=== PATIENT | female | born 2000 | race Caucasian/White ===

== ENCOUNTER → 2021-07-14 10:29 | Outpatient (BNVA) | payer OTHER, SELFPAY | PROVIDERS: Family Provider Student in an Organized Health Care Education/Training Program; PCP Registered Nurse; Visit Provider Registered Nurse | DX: Z20.822 Contact with and (suspected) exposure to COVID-19 (principal); Z11.52 Encounter for screening for COVID-19; U07.1 COVID-19 | CPT/HCPCS: 87635 ==

== ENCOUNTER 2021-11-21 21:48 | Emergency (ER) | payer OTHER, SELFPAY ==
[2021-11-21 21:58] VITALS: BP 138/60; PULSE 76; RESP 20; TEMP 36.6; O2SAT 100; BMI 31.8
--- NOTE | 2021-11-21 22:27 | CTR_ITS ---
PROCEDURE INFORMATION: Exam: CT Maxillofacial Without Contrast Exam date and time: 11/21/2021 10:27 PM Age: 21 years old Clinical indication: Injury or trauma; Blunt trauma (contusions or hematomas); Patient HX: HX of seizures - single seizure this pm w fall hitting nose; Additional info: Seizure-fell and hit head, epistaxis TECHNIQUE: Imaging protocol: Computed tomography images of the face without contrast. Radiation optimization: All CT scans at this facility use at least one of these dose optimization techniques: automated exposure control; mA and/or kV adjustment per patient size (includes targeted exams where dose is matched to clinical indication); or iterative reconstruction. COMPARISON: CT head wo con* [id number] 2021-11-21 22:43 RADIATION DOSE METRICS: Total DLP (mGy-cm): 714.01 FINDINGS: Orbital cavities: Orbits are normal. Globes are unremarkable. Bones/joints: No acute fracture or dislocation. Paranasal sinuses: Normal. No air-fluid levels. Soft tissues: Unremarkable. CT/CT facial bones wo con* [id number] IMPRESSION: No acute osseous abnormality.
--- NOTE | 2021-11-21 22:27 | CTR_ITS ---
PROCEDURE INFORMATION: Exam: CT Cervical Spine Without Contrast Exam date and time: 11/21/2021 10:27 PM Age: 21 years old Clinical indication: Injury or trauma; Blunt trauma; Patient HX: HX of seizures - single seizure this pm w fall; Additional info: Seizure-fell and hit head TECHNIQUE: Imaging protocol: Computed tomography images of the cervical spine without contrast. Radiation optimization: All CT scans at this facility use at least one of these dose optimization techniques: automated exposure control; mA and/or kV adjustment per patient size (includes targeted exams where dose is matched to clinical indication); or iterative reconstruction. COMPARISON: 1. CT facial bones wo con* [id number] 2021-11-21 22:[address] head wo con* [id number] 2021-11-21 22:43 RADIATION DOSE METRICS: Total DLP (mGy-cm): 669.9 FINDINGS: Bones/joints: Straightening of the normal cervical lordotic curvature. Normal vertebral body heights and alignments. No fractures. Discs/Spinal canal/Neural foramina: No significant disc protrusion. No severe spinal canal stenosis. No significant neural foraminal narrowing. Lungs: Lung apices are normal. Soft tissues: Unremarkable. CT/CT cervical spin wo con* [id number] IMPRESSION: No acute fracture/subluxation.
--- NOTE | 2021-11-21 22:27 | CTR_ITS ---
PROCEDURE INFORMATION: Exam: CT Head Without Contrast Exam date and time: 11/21/2021 10:27 PM Age: 21 years old Clinical indication: Injury or trauma; Blunt trauma (contusions or hematomas); Consciousness not specified; Patient HX: HX of seizures - single seizure this pm w fall; Additional info: Seizure-fell and hit head TECHNIQUE: Imaging protocol: Computed tomography of the head without contrast. Radiation optimization: All CT scans at this facility use at least one of these dose optimization techniques: automated exposure control; mA and/or kV adjustment per patient size (includes targeted exams where dose is matched to clinical indication); or iterative reconstruction. COMPARISON: No relevant prior studies available. RADIATION DOSE METRICS: Total DLP (mGy-cm): 770.26 FINDINGS: Brain: Normal. No hemorrhage. Unremarkable white matter. No mass effect. Cerebral ventricles: No ventriculomegaly. Paranasal sinuses: Visualized sinuses are unremarkable. No fluid levels. Mastoid air cells: Visualized mastoid air cells are well aerated. Bones/joints: Unremarkable. No acute fracture. Soft tissues: Unremarkable. CT/CT head wo con* [id number] IMPRESSION: No acute intracranial abnormality.
--- NOTE | 2021-11-21 22:33 | ED_ITS ---
Documented by User: JENNIFER Magana 11/22/21 03:47 HPI - Seizure General: Chief Complaint: Seizure Stated Complaint: Seizures Time Seen by Provider: 11/21/21 22:14 History of Present Illness: HPI Narrative: Patient is a 21-year-old female comes to the ED after seizures. Patient has a past medical history of seizures and is currently on Keppra 500 mg twice daily. She says she has not had a seizure in over 3 months. Today she had a headache and no other symptoms. around 5 PM tonight she was at her house and had a seizure. It was unwitnessed. Patient says she was standing when seizure occurred. She woke up face down on the ground and had a bloody nose. She had bladder incontinence during episode. She had another seizure approximately 30 to 40 minutes after the first 1. She still has a headache and it is located at the top of her head she describes it as a sharp pain and she rates it a 9 out of 10. She feels nauseous as well and says light and loud noises worsen headache. She was able to get nosebleed resolved at home. She endorses having pain on left maxillary side of her face and pain over bridge of nose. Patient sees a neurologist in [place]. Associated symptoms: Deny chest pain, chills or fever(s) Review of Systems Const: Reports: fatigue (post-ictal tiredness); Denies: fever(s) or chills Eyes: Reports: photophobia; Denies: change in vision or eye discomfort ENMT: Reports: epistaxis and sinus pain (pain over bridge of nose and left maxillary region); Denies: throat pain, odynophagia, nasal discharge or nasal congestion Card: Denies: chest pain, palpitations, edema, swelling of feet/ankles, dyspnea on exertion or orthopnea Resp: Denies: dyspnea, productive cough or non-productive cough GI: Denies: abdominal pain, nausea, vomiting, diarrhea, constipation or hematochezia : Denies: flank pain, dysuria or hematuria Musc: Denies: neck pain, back pain or extremity swelling Skin/Breast: Denies: rash or new lesions Neuro: Reports: headache(s) and seizure-like activity; Denies: numbness in extremities or weakness in extremities PFS ED PFSH: Medical History No pertinent family history Seizures Physical Exam Const: COMMON NORMALS: patient oriented x3 and alert GENERAL APPEARANCE: cooperative and comfortable HENMT: COMMON NORMALS: normocephalic HEAD & SCALP: normocephalic NOSE: Abnormal external nose present nasal tenderness (tenderness over bridge of nose) and Epistaxis present bilaterally dried blood present; no active bleeding MOUTH: Normal oral and palatal mucosa present THROAT: posterior oropharynx normal and uvula midline Eye: COMMON NORMALS: Equal, round and reactive pupils present, EOMs intact bilaterally and conjunctivae normal CONJUNCTIVA: Yes conjunctivae normal PUPIL: Yes Equal, round and reactive pupils present Neck/C-Spine: COMMON NORMALS: supple GENERAL: Yes normal visual inspection Resp: COMMON NORMALS: normal respiratory effort, No retractions, No use of accessory muscles and clear to auscultation bilaterally AUSCULTATION: clear to auscultation bilaterally Cardio: COMMON NORMALS: regular rate, regular rhythm, S1 normal heart sound present, S2 normal heart sound present, No gallops present (Cardio), No clicks present (Cardio), No murmurs present (Cardio) and Peripheral pulses 2+ throughout RATE: regular rate RHYTHM: regular rhythm HEART SOUNDS: S1 normal heart sound present and S2 normal heart sound present PERIPHERAL PULSES: Peripheral pulses 2+ throughout GI: COMMON NORMALS: Normal to inspection, nondistended, normoactive bowel sounds present, Soft to palpation, non-tender and no masses PALPATION: Yes Soft to palpation : COMMON NORMALS: Yes no CVA tenderness BLADDER/KIDNEY EXAM: Yes no CVA tenderness Back/Pelvis: COMMON NORMALS: no CVA tenderness Extremity: COMMON NORMALS: normal to inspection Neuro: COMMON NORMALS: patient oriented x3, CN's II-XII intact bilaterally, moves all extremities, no focal motor deficits and no sensory deficits noted SENSORIUM/ORIENTATION: Yes alert SENSORY EXAM: Yes extremities (intact) MOTOR EXAM: 5/5 motor strength present throughout Skin: GENERAL SKIN EXAM: dry skin Course Reevaluation(s): Reevaluation #1: After patient received IV Toradol and Reglan her migraine improved. She rates her headache now 5 out of 10 and says it is manageable. Time: 00:20 Vital Signs: Vital signs: Vital Signs Temperature 97.9 F 11/21/21 21:58 Pulse Rate 73 11/22/21 00:41 Respiratory Rate 16 11/22/21 00:41 Blood Pressure 105/61 11/22/21 00:41 Pulse Oximetry 97 11/22/21 00:41 MDM - Seizure MDM Narrative Medical decision making narrative: Patient is a 21-year-old female comes to the ED after seizures. Patient has a past medical history of seizures and is currently on Keppra 500 mg twice daily. She says she has not had a seizure in over 3 months. Today she had a headache and no other symptoms. around 5 PM tonight she was at her house and had a seizure while standing and woke up on the ground. She had another seizure approximately 30 to 45 minutes later and she said she had a nosebleed that she was able to control at home. Patient still having a migraine. Vitals are stable. Labs are unremarkable. CT of face, head and cervical spine showed no acute fractures or findings. Patient was given IV fluids, Reglan and Toradol while here in the ED and her migraine improved. She was also given a dose of Ativan and 500 mg of IV Keppra here in the ED. Patient sees neurologist in [place]. Patient diagnosed with a seizure migraine and was discharged home. I told patient to contact her neurologist tomorrow morning to discuss seizures yesterday and possible change in seizure medication management. I also told her to follow-up with her PCP in the next 5 to 7 days for reevaluation. Return to ED precautions given. Patient understood and agreed with plan. Lab Data Attestation: I reviewed the patient's lab results. Result diagrams: 11/21/21 22:20 11/21/21 22:20 Labs: Radiology Impressions Cervical Spine CT 11/21/21 22:27 IMPRESSION: No acute fracture/subluxation. Face CT 11/21/21 22:27 IMPRESSION: No acute osseous abnormality. Head CT 11/21/21 22:27 IMPRESSION: No acute intracranial abnormality. Laboratory Results WBC 7.3 10^3/uL (4.0-10.0) 11/21/21 22:20 RBC 5.28 10^6/uL (4.1-5.3) 11/21/21 22:20 Hgb 15.5 g/dL (11.5-15.3) H 11/21/21 22:20 Hct 45.6 % (37.0-47.0) 11/21/21 22:20 MCV 86.4 fl (81-99) 11/21/21:20 MCH 29.4 pg (28.0-34.0) 11/21/21: MCHC 34.0 g/dL (30.0-36.0) 11/21/21:20 RDW 12.3 % (12.1-15.1) 11/21/21: Plt Count 241 10^3/cmm (130-400) 11/21/21 22:20 MPV 10.2 fL (7.4-10.4) 11/21/21 22: Neut % (Auto) 60.1 % 11/21/21 22: Lymph % (Auto) 31.6 % 11/21/21 22: [place] % (Auto) 6.6 % 11/21/21 22:20 Eos % (Auto) 1.0 % 11/21/21: Baso % (Auto) 0.4 % 11/21/21: Neut # (Auto) 4.41 10^3/uL (1.8-7.7) 11/21/21 22:20 Lymph # (Auto) 2.3 10^3/uL (0.8-4.8) 11/21/21:20 [place] # (Auto) 0.5 10^3/uL (0.2-0.9) 11/21/21 22:20 Eos # (Auto) 0.1 10^3/uL (0.0-0.8) 11/21/21:20 Baso # (Auto) 0.0 10^3/uL (0.0-0.1) 11/21/21:20 Nucleated RBC % (auto) 0 % 11/21/21: Nucleated RBCs # 0.0 /100WBC 11/21/21 22:20 Sodium 141 mmol/L (136-145) 11/21/21 22:20 Potassium 4.0 mmol/L (3.5-5.1) 11/21/21 22:20 Chloride 104 mmol/L (98-107) 11/21/21 22:20 Carbon Dioxide 25 mmol/L (22-29) 03/13/22 22:20 Anion Gap 16.0 (5-19) 11/21/21 22:20 BUN 17 mg/dL (6-20) 11/21/21 22:20 Creatinine 0.8 mg/dL (0.5-0.9) 11/21/21 22:20 GFR Calculation 90.5 mL/min (90-130) 11/21/21 22:20 Glucose 94 mg/dL (65-115) 11/21/21 22:20 Calculated Osmolality 293 mOsm/kg (285-295) 11/21/21 22:20 Calcium 9.5 mg/dL (8.5-10.5) 11/21/21 22:20 Magnesium 2.0 mg/dL (1.7-2.3) 11/21/21 22:20 Total Bilirubin 0.5 mg/dL (0.15-1.2) 11/21/21 22:20 AST 17 U/L (0-32) 11/21/21 22:20 ALT 15 U/L (0-33) 11/21/21 22:20 Alkaline Phosphatase 53 IU/L (35-105) 11/21/21 22:20 Creatine Kinase 80 U/L (26-192) 11/21/21 22:20 Total Protein 7.5 g/dL (6.6-8.7) 11/21/21 22:20 Albumin 4.5 g/dL (3.5-5.2) 11/21/21 22:20 Globulin 3.0 g/dL (1.3-4.6) 11/21/21 22:20 TSH 0.90 uIU/mL (0.27-4.20) 11/21/21 22:20 HCG, Qual Negative (Negative) 11/21/21 22:20 Discharge Plan Discharge Patient Disposition: Home Clinical Impression: Seizure Migraine Qualifiers: Migraine type: without aura Status migrainosus presence: without status migrainosus Intractability: not intractable Qualified Code(s): G43.009 - Migraine without aura, not intractable, without status migrainosus Condition: Stable Prescriptions: No Action levetiracetam [Keppra] 500 mg tablet See Rx Instructions PO BID 0RF Rx Instructions: DOSE UNSURE.PO twice a day; Discharge Orders: Discharge ED (Routine); Ordered 11/22/21 Ordered By: Donovan Abernathy Referrals: Farrah Trevino FNP [Primary Care Provider] - Amrik Perez MD [Referring] - Discharge Diet: Regular Discharge Activity: Increase activity as tolerated Patient Instructions: Seizures Activity Restrictions/Additional Instructions: Follow-up with medical provider as directed. Call your neurologist tomorrow to let them know about your 2 seizures tonight and find out if they will want you to make any medication adjustments. You can let the neurologist know that you were given an extra dose of 500 mg IV Keppra here in the ED last night. Also set up a follow-up appoint with your primary care doctor within the next week for reevaluation. Continue taking home medications as previously prescribed. Return to the ER or your medical provider if condition worsens. Please read and understand discharge instructions. Thank you for choosing [facility] for your healthcare needs today. Please realize this is an emergency room and that we are providing you with a medical screening exam and this may not be complete and all inclusive of all the testing and or work up that you may need to determine your ailment or severity of your illness. It is very important that you follow up as instructed or that you return to the Emergency Department should you have concerns or if your condition changes or worsens in any way. 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 Patient has a past medical history of seizures and is currently on Keppra 500 mg twice daily. She says she has not had a seizure in over 3 months. Today she had a headache and no other symptoms. around 5 PM tonight she was at her house and had a seizure while standing and woke up on the ground. She had another seizure approximately 30 to 45 minutes later and she said she had a nosebleed that she was able to control at home. Patient still having a migraine. Vitals are stable. Labs are unremarkable. CT of face, head and cervical spine showed no acute fractures or findings. Patient was given IV fluids, Reglan and Toradol while here in the ED and her migraine improved. She was also given a dose of Ativan and 500 mg of IV Keppra here in the ED. Patient sees neurologist in [place]. Patient diagnosed with a seizure migraine and was discharged home. I told patient to contact her neurologist tomorrow morning to discuss seizures yesterday and possible change in seizure medication management. I also told her to follow-up with her PCP in the next 5 to 7 days for reevaluation. Return to ED precautions given. Patient understood and agreed with plan. This patient was originally seen by Mr. Josemanule PA-C.? I agree with his history, evaluation, and treatment. Lab Data Result diagrams: 11/21/21 22:20 11/21/21 22:20 Labs: Radiology Impressions Cervical Spine CT 11/21/21 22:27 IMPRESSION: No acute fracture/subluxation. Face CT 11/21/21 22:27 IMPRESSION: No acute osseous abnormality. Head CT 11/21/21 22:27 IMPRESSION: No acute intracranial abnormality. Laboratory Results WBC 7.3 10^3/uL (4.0-10.0) 11/21/21 22:20 RBC 5.28 10^6/uL (4.1-5.3) 11/21/21 22:20 Hgb 15.5 g/dL (11.5-15.3) H 11/21/21 22:20 Hct 45.6 % (37.0-47.0) 11/21/21 22:20 MCV 86.4 fl (81-99) 11/21/21 22:20 MCH 29.4 pg (28.0-34.0) 11/21/21 22:20 MCHC 34.0 g/dL (30.0-36.0) 11/21/21 22:20 RDW 12.3 % (12.1-15.1) 11/21/21 22:20 Plt Count 241 10^3/cmm (130-400) 11/21/21 22:20 MPV 10.2 fL (7.4-10.4) 11/21/21 22:20 Neut % (Auto) 60.1 % 11/21/21 22:20 Lymph % (Auto) 31.6 % 11/21/21 22:20 [place] % (Auto) 6.6 % 11/21/21 22:20 Eos % (Auto) 1.0 % 11/21/21 22:20 Baso % (Auto) 0.4 % 11/21/21:20 Neut # (Auto) 4.41 10^3/uL (1.8-7.7) 11/21/21 22:20 Lymph # (Auto) 2.3 10^3/uL (0.8-4.8) 11/21/21 22:20 [place] # (Auto) 0.5 10^3/uL (0.2-0.9) 11/21/21 22:20 Eos # (Auto) 0.1 10^3/uL (0.0-0.8) 11/21/21:20 Baso # (Auto) 0.0 10^3/uL (0.0-0.1) 11/21/21 22:20 Nucleated RBC % (auto) 0 % 11/21/21:20 Nucleated RBCs # 0.0 /100WBC 11/21/21 22:20 Sodium 141 mmol/L (136-145) 11/21/21 22:20 Potassium 4.0 mmol/L (3.5-5.1) 11/21/21 22:20 Chloride 104 mmol/L (98-107) 11/21/21 22:20 Carbon Dioxide 25 mmol/L (22-29) 11/21/21 22:20 Anion Gap 16.0 (5-19) 11/21/21 22:20 BUN 17 mg/dL (6-20) 11/21/21 22:20 Creatinine 0.8 mg/dL (0.5-0.9) 11/21/21 22:20 GFR Calculation 90.5 mL/min (90-130) 11/21/21 22:20 Glucose 94 mg/dL (65-115) 11/21/21 22:20 Calculated Osmolality 293 mOsm/kg (285-295) 11/21/21 22:20 Calcium 9.5 mg/dL (8.5-10.5) 11/21/21 22:20 Magnesium 2.0 mg/dL (1.7-2.3) 11/21/21 22:20 Total Bilirubin 0.5 mg/dL (0.15-1.2) 11/21/21 22:20 AST 17 U/L (0-32) 11/21/21 22:20 ALT 15 U/L (0-33) 11/21/21 22:20 Alkaline Phosphatase 53 IU/L (35-105) 11/21/21 22:20 Creatine Kinase 80 U/L (26-192) 11/21/21 22:20 Total Protein 7.5 g/dL (6.6-8.7) 11/21/21 22:20 Albumin 4.5 g/dL (3.5-5.2) 11/21/21 22:20 Globulin 3.0 g/dL (1.3-4.6) 11/21/21 22:20 TSH 0.90 uIU/mL (0.27-4.20) 11/21/21 22:20 HCG, Qual Negative (Negative) 11/21/21 22:20 Discharge Plan Discharge Patient Disposition: Home Clinical Impression: Seizure Migraine Qualifiers: Migraine type: without aura Status migrainosus presence: without status migrainosus Intractability: not intractable Qualified Code(s): G43.009 - Migraine without aura, not intractable, without status migrainosus Condition: Stable Prescriptions: No Action levetiracetam [Keppra] 500 mg tablet See Rx Instructions PO BID 0RF Rx Instructions: DOSE UNSURE.PO twice a day; Discharge Orders: Discharge ED (Routine); Ordered 11/22/21 Ordered By: Donovan Abernathy Referrals: Farrah Trevino FNP [Primary Care Provider] - Amrik Perez MD [Referring] - Discharge Diet: Regular Discharge Activity: Increase activity as tolerated Patient Instructions: Seizures Activity Restrictions/Additional Instructions: Follow-up with medical provider as directed. Call your neurologist tomorrow to let them know about your 2 seizures tonight and find out if they will want you to make any medication adjustments. You can let the neurologist know that you were given an extra dose of 500 mg IV Keppra here in the ED last night. Also set up a follow-up appoint with your primary care doctor within the next week for reevaluation. Continue taking home medications as previously prescribed. Return to the ER or your medical provider if condition worsens. Please read and understand discharge instructions. Thank you for choosing [facility] for your healthcare needs today. Please realize this is an emergency room and that we are providing you with a medical screening exam and this may not be complete and all inclusive of all the testing and or work up that you may need to determine your ailment or severity of your illness. It is very important that you follow up as instructed or that you return to the Emergency Department should you have concerns or if your condition changes or worsens in any way. 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
[2021-11-21 22:37] LABS: Basophils % 0.4 %; Eosinophils # 0.1 10^3/uL (0.0-0.8); Hematocrit 45.6 % (37.0-47.0); Hemoglobin 15.5 g/dL (11.5-15.3); Lymphocytes # 2.3 10^3/uL (0.8-4.8); Lymphocytes % 31.6 %; Mean Corpuscular Hemoglobin 29.4 pg (28.0-34.0); Mean Corpuscular Volume 86.4 fl (81-99); Mean Platelet Volume 10.2 fL (7.4-10.4); Monocytes # 0.5 10^3/uL (0.2-0.9); Monocytes % 6.6 %; Neutrophils # 4.41 10^3/uL (1.8-7.7); Neutrophils % 60.1 %; Nucleated Red Blood Cells % 0 %; Platelet Count 241 10^3/cmm (130-400); Red Blood Count 5.28 10^6/uL (4.1-5.3); Red Cell Distribution Width 12.3 % (12.1-15.1); White Blood Count 7.3 10^3/uL (4.0-10.0)
[2021-11-21] MEDS: ondansetron 2 mg/ML SDV 2 mL 4 MG IVP (22:37)
[2021-11-21] MEDS: LORazepam 2 mg/mL INJ 1 mL 1 MG IVP (22:37)
[2021-11-21 22:54] LABS: HCG, Serum Qual Negative (Negative)
[2021-11-21 22:58] LABS: Alanine Aminotransferase 15 U/L (0-33); Albumin Level 4.5 g/dL (3.5-5.2); Alkaline Phosphatase 53 IU/L (35-105); Aspartate Amino Transferase 17 U/L (0-32); Blood Urea Nitrogen 17 mg/dL (6-20); Calcium 9.5 mg/dL (8.5-10.5); Carbon Dioxide 25 mmol/L (22-29); Chloride 104 mmol/L (98-107); Creatine Phosphokinase 80 U/L (26-192); Glomerular Filtration Rate 90.5 mL/min (90-130); Glucose 94 mg/dL (65-115); Osmolality Calculated 293 mOsm/kg (285-295); Sodium 141 mmol/L (136-145); Total Bilirubin 0.5 mg/dL (0.15-1.2); Total Protein 7.5 g/dL (6.6-8.7)
[2021-11-21] MEDS: ketorolac 30 mg/mL INJ IVP (23:31)
[2021-11-21] MEDS: metoclopramide 5 mg/mL SDV 2 mL 10 MG IVP (23:31)
[2021-11-21] MEDS: sodium chloride 0.9% 500 ML 999 ML IV (23:31)
[2021-11-22 00:41] VITALS: BP 105/61; PULSE 73; RESP 16; O2SAT 97
== END 2021-11-22 00:42 | disposition home or self-care (01) ==
PROVIDERS: Emergency Provider Physician Assistant; PCP Registered Nurse
DX: R56.9 Unspecified convulsions (principal); G43.009 Migraine without aura, not intractable, without status migrainosus
CPT/HCPCS: 70450; 70486; 72125; 80053; 82550; 83735; 84443; 84703; 85025; 96365; 96375; 99284; J1885; J1953; J2060; J2405; J2765; J7040

== ENCOUNTER 2021-11-23 08:09 | Emergency (ER) | payer OTHER, SELFPAY ==
[2021-11-23] VITALS (8 sets, daily range): BP systolic 79–126; BP diastolic 38–75; PULSE 56–72; RESP 17–18; TEMP 36.4–36.7; O2SAT 96–100; BMI 31.8
--- NOTE | 2021-11-23 08:18 | XR_ITS ---
WS: [id number] XR chest 1V portable [id number] REASON FOR EXAM: seizures FINDINGS: The heart and mediastinum are within normal limits. Calcified granulomatous disease bilaterally. No active pulmonary parenchymal or pleural abnormality. Bony thorax intact. XR/XR chest 1V portable [id number] IMPRESSION: No acute chest abnormality.
--- NOTE | 2021-11-23 08:19 | W.ED.SEIZURE ---
Documented by User: JENNIFER Shin 11/23/21 10:43 HPI - Seizure General: Chief Complaint: Seizure Stated Complaint: SEIZURE Time Seen by Provider: 11/23/21 08:10 Source: patient Mode of arrival: ambulatory Limitations: no limitations History of Present Illness: HPI Narrative: Patient is a nice 21-year-old female with a history of epilepsy here for concerns of a seizure that she had while at work just prior to arrival. She states she was seated in the break room eating when she felt like she was going to have a seizure and reports she blacked out. She reports when seizures have been witnessed previously she has been told she has minor clonic movements. Patient tells me that she takes Keppra as well as Topamax for her seizures. She states she was here in the ED approximately 48 hours ago after she had a seizure. She states prior to these episodes that she had not had a seizure in over 3 months. He follows with a neurologist at [facility] in [place]-Dr. Reyes. Patient states she has not had any changes to her current medication regimens. Denies drug or alcohol use. Patient states over the last few days she has felt achy has had a headache. She does have a history of migraine headaches and has been told that these could contribute to her seizures. Patient takes Ubrevly and Imitrex PRN for migraines. Patient has not been running fevers. She has no complaints of neck pain or stiffness. Patient underwent CT imaging 48 hours ago on her last ED visit that was normal. No head trauma during this episode today. MD complaint: seizure Onset (ago): hour(s) Description of Episode: loss of consciousness, bladder incontinence and post-event confusion Witnessed: Yes - by Bystander Trauma: No Seizure History: Yes Place: Work Possible Precipitating Event: none Associated symptoms: Reports other (headache ); Deny chest pain, chills, confusion, fever(s), malaise or syncope Treatments prior to arrival: none Review of Systems Const: Reports: body aches; Denies: fever(s), chills, fatigue or malaise Eyes: Denies: change in vision, blurry vision, photophobia, floaters or seeing flashes ENMT: Denies: throat pain, odynophagia, nasal discharge, nasal congestion, post nasal drip or sinus pain Card: Denies: chest pain, palpitations, irregular heart rhythm, edema, lightheadedness, syncope or pre-syncope Resp: Denies: dyspnea or chest congestion GI: Denies: abdominal pain, vomiting or diarrhea : Denies: flank pain, dysuria, hematuria, vaginal odor, vaginal discharge or pelvic pain Musc: Denies: neck pain, back pain, extremity pain or joint pain Skin/Breast: Denies: rash Neuro: Reports: headache(s) and seizure-like activity; Denies: numbness in extremities, weakness in extremities, sensory changes, lack of coordination, difficulty walking, frequent falls, dizziness, vertigo, confusion, behavioral changes, Slurred speech present or difficulty communicating thoughts PFSH ED PFSH: Medical History No pertinent family history Seizures Physical Exam Const: COMMON NORMALS: no acute distress, average body habitus, patient oriented x3, no limitations, healthy appearing, alert and well nourished GENERAL APPEARANCE: cooperative ORIENTATION/CONSCIOUSNESS: Yes awake, Yes oriented to person, Yes oriented to place and Yes oriented to time HENMT: COMMON NORMALS: normocephalic and atraumatic HEAD & SCALP: normal to inspection, normocephalic and atraumatic FACE & SINUS: normal facial exam Eye: COMMON NORMALS: Equal, round and reactive pupils present and EOMs intact bilaterally GENERAL EYE: appearance normal, both eyes and all related structures PUPIL: Yes Equal, round and reactive pupils present Neck/C-Spine: COMMON NORMALS: full ROM and no meningeal signs CERVICAL SPINE: Yes cervical ROM normal, No pain with cervical ROM and No Cervical spine tenderness Resp: COMMON NORMALS: normal respiratory effort and clear to auscultation bilaterally AUSCULTATION: clear to auscultation bilaterally Cardio: COMMON NORMALS: regular rate and regular rhythm RATE: regular rate RHYTHM: regular rhythm GI: COMMON NORMALS: Normal to inspection, nondistended, normoactive bowel sounds present, Soft to palpation, non-tender, No hepatosplenomegaly present and no masses PALPATION: Yes Soft to palpation and Yes No hepatosplenomegaly present : COMMON NORMALS: Yes no CVA tenderness BLADDER/KIDNEY EXAM: Yes no CVA tenderness Back/Pelvis: COMMON NORMALS: no CVA tenderness, thoracic and lumbar spine normal to inspection, no thoracic nor lumbar tenderness and thoraco-lumbar ROM normal Extremity: COMMON NORMALS: normal to inspection, capillary refill normal, no joint enlargement, no clubbing, cyanosis or edema, no calf tenderness and no pedal edema GENERAL: Yes normal exam except as noted Neuro: SARAH BETH COMA SCALE: document GCS findings [place] coma scale eye opening: Spontaneous Sarah Beth coma scale verbal response: Orientated [place] coma scale motor response: Obey commands Sarah Beth coma scale total score: 15 COMMON NORMALS: patient oriented x3, CN's II-XII intact bilaterally, moves all extremities, no focal motor deficits and no sensory deficits noted SENSORIUM/ORIENTATION: Yes alert, Yes oriented to person, Yes oriented to place and Yes oriented to time MENINGEAL SIGNS: Yes no meningeal signs SPEECH: speech normal Skin: COMMON NORMALS: no rashes or lesions noted GENERAL SKIN EXAM: no rashes or lesions noted TRAUMA: no lacerations or abrasions Course Consultations: Consultation #1: Dr. Mabel Reyes-[facility]-recommends increasing Topamax to 100mg BID Vital Signs: Vital signs: Vital Signs Temperature 98.1 F 11/23/21 08:48 Pulse Rate 66 11/23/21 10:49 Respiratory Rate 17 11/23/21 10:49 Blood Pressure 119/75 11/23/21 10:49 Pulse Oximetry 96 11/23/21 10:49 MDM - Seizure MDM Narrative Medical decision making narrative: Patient is a 21-year-old female who presents to ED today for complaints of a seizure that occurred just prior to arrival while she was seated in the break room eating. Patient tells me she has a history of epilepsy. She follows with [facility]-Dr. Reyes. Patient was in our ED 48 hours ago for complaints of a seizure. Prior to these episodes she had not had a seizure in over 3 months. She takes Keppra and Topamax daily for seizures. She also has a history of migraine headaches in which she takes Ubrelvy and Imitrex as needed. I spoke to patient's neurologist today who stated patient is being treated for epilepsy but her diagnosis is not entire clear as her last MRI and EEG were normal. She had requests for these tests to be repeated but according to patient has not been due to her insurance. Dr. Reyes said that she would be creating another note to submit to insurance to get these tests expedited. She recommended increasing patient's Topamax from 50 mg twice daily to 100 mg twice daily. She would call this medication into patient's pharmacy (we will go ahead and write her prescription today just in case there are any issues). Patient had work-up 48 hours ago in our ED consisting of blood work and CT imaging which was essentially negative. She has not had any head trauma today therefore CT imaging not repeated. She had a negative test last visit. Basic labs today are normal. UA is contaminated does look suspicious for UTI. She does complain of some urinary burning and has been taking Azo. Recommended repeat UA however patient states she does not want to drink anything and cannot give repeat sample and refuses cath. We will go ahead and place her on Macrobid based on symptoms. She did complain of a headache today which improved with IV medications. At this time patient is stable for DC with strict return to ED precautions. She has someone that can stay with her for safety over the next 48 hours. Lab Data Result diagrams: 11/23/21 08:25 11/23/21 08:25 Labs: Radiology Impressions Chest X-Ray 11/23/21 08:18 IMPRESSION: No acute chest abnormality. Laboratory Results WBC 6.3 10^3/uL (4.0-10.0) 11/23/21 08:25 RBC 5.05 10^6/uL (4.1-5.3) 11/23/21 08:25 Hgb 14.9 g/dL (11.5-15.3) 11/23/21 08:25 Hct 44.3 % (37.0-47.0) 11/23/21 08:25 MCV 87.7 fl (81-99) 11/23/21 08:25 MCH 29.5 pg (28.0-34.0) 11/23/21 08:25 MCHC 33.6 g/dL (30.0-36.0) 11/23/21 08:25 RDW 12.1 % (12.1-15.1) 11/23/21 08:25 Plt Count 208 10^3/cmm (130-400) 11/23/21 08:25 MPV 10.6 fL (7.4-10.4) H 11/23/21 08:25 Neut % (Auto) 68.1 % 11/23/21 08:25 Lymph % (Auto) 26.5 % 11/23/21 08:25 [place] % (Auto) 4.1 % 11/23/21 08:25 Eos % (Auto) 0.5 % 11/23/21 08:25 Baso % (Auto) 0.3 % 11/23/21 08:25 Neut # (Auto) 4.31 10^3/uL (1.8-7.7) 11/23/21 08:25 Lymph # (Auto) 1.7 10^3/uL (0.8-4.8) 11/23/21 08:25 [place] # (Auto) 0.3 10^3/uL (0.2-0.9) 11/23/21 08:25 Eos # (Auto) 0.0 10^3/uL (0.0-0.8) 11/23/21 08:25 Baso # (Auto) 0.0 10^3/uL (0.0-0.1) 11/23/21 08:25 Nucleated RBC % (auto) 0 % 11/23/21 08:25 Nucleated RBCs # 0.0 /100WBC 11/23/21 08:25 Sodium 140 mmol/L (136-145) 11/23/21 08:25 Potassium 4.3 mmol/L (3.5-5.1) 11/23/21 08:25 Chloride 105 mmol/L (98-107) 11/23/21 08:25 Carbon Dioxide 24 mmol/L (22-29) 11/23/21 08:25 Anion Gap 15.3 (5-19) 11/23/21 08:25 BUN 16 mg/dL (6-20) 11/23/21 08:25 Creatinine 0.9 mg/dL (0.5-0.9) 11/23/21 08:25 GFR Calculation 79.0 mL/min (90-130) L 11/23/21 08:25 Glucose 92 mg/dL (65-115) 11/23/21 08:25 Calculated Osmolality 291 mOsm/kg (285-295) 11/23/21 08:25 Lactic Acid 1.1 mmol/L (0.5-2.2) 11/23/21 08:25 Calcium 9.0 mg/dL (8.5-10.5) 11/23/21 08:25 Total Bilirubin 0.9 mg/dL (0.15-1.2) 11/23/21 08:25 AST 14 U/L (0-32) 11/23/21 08:25 ALT 13 U/L (0-33) 11/23/21 08:25 Alkaline Phosphatase 53 IU/L (35-105) 11/23/21 08:25 Total Protein 6.9 g/dL (6.6-8.7) 11/23/21 08:25 Albumin 4.7 g/dL (3.5-5.2) 11/23/21 08:25 Globulin 2.2 g/dL (1.3-4.6) 11/23/21 08:25 Urine Color Yellow (Yellow) 11/23/21 09:30 Urine Appearance Cloudy (CLEAR) 11/23/21 09:30 Urine pH 5 (5-7) 11/23/21 09:30 Ur Specific [place] 1.020 (1.005-1.030) 11/23/21 09:30 Urine Protein Neg (Negative) 11/23/21 09:30 Urine Glucose (UA) Norm (Normal) 11/23/21 09:30 Urine Ketones Negative (Negative) 11/23/21 09:30 Urine Blood 2+ (Negative) H 11/23/21 09:30 Urine Nitrate Negative (Negative) 11/23/21 09:30 Urine Bilirubin Neg (Negative) 11/23/21 09:30 Urine Urobilinogen Norm mg/dL (Negative) 11/23/21 09:30 Ur Leukocyte Esterase Trace (Negative) H 11/23/21 09:30 Urine RBC 5-10 /hpf (0-2) H 11/23/21 09:30 Urine WBC 25-40 /hpf (0-5) H 11/23/21 09:30 Ur Squamous Epith Cells 25-40 /hpf (0-5) H 11/23/21 09:30 Amorphous Sediment Not Reportable 11/23/21 09:30 Urine Bacteria 1+ /hpf (NONE) H 11/23/21 09:30 Discharge Plan Discharge Patient Disposition: Home Clinical Impression: Seizure Migraine Qualifiers: Migraine type: unspecified Status migrainosus presence: without status migrainosus Intractability: not intractable Qualified Code(s): G43.909 - Migraine, unspecified, not intractable, without status migrainosus UTI (urinary tract infection) Qualifiers: Urinary tract infection type: acute cystitis Hematuria presence: with hematuria Qualified Code(s): N30.01 - Acute cystitis with hematuria Condition: Stable Prescriptions: New Topamax 100 mg tablet 100 mg PO BID Qty: 60 0RF Macrobid 100 mg capsule 100 mg PO BID 7 Days Qty: 14 0RF Rx Instructions: must administer with a meal/food Discontinued topiramate [Topamax] 50 mg Tablet 50 mg PO BID 0RF No Action Mirena 20 mcg/24 hours (7 yrs) 52 mg Intrauterine Device See Rx Instructions .ROUTE .COMPLEX 0RF Rx Instructions: intrauterinely as directed acetaminophen [Tylenol Ex Str Rapid Release] 500 mg Tablet 1,000 mg PO Q6H PRN (Reason: Pain) 0RF sumatriptan succinate [Imitrex] 100 mg Tablet 100 mg PO Q2H PRN (Reason: Migraine Headache) 0RF Rx Instructions: do not exceed 2 doses per 24 hrs melatonin 3 mg Tablet 3 mg PO BEDTIME PRN (Reason: Sleep) 0RF amitriptyline 25 mg Tablet 25 mg PO BEDTIME 0RF docusate sodium [Colace] 100 mg Capsule 100 mg PO BID PRN (Reason: Constipation) 0RF levetiracetam [Keppra] 750 mg Tablet 750 mg PO BID 0RF Ubrelvy 50 mg Tablet 50 mg PO DAILY PRN (Reason: Migraine Headache) 0RF Discharge Orders: Discharge ED (Routine); Ordered 11/23/21 Ordered By: Kelsey Reid Referrals: Farrah Trevino, [employer] [Nurse Practitioner] - Activity Restrictions/Additional Instructions: As we discussed I have spoken to your neurologist who would like to increase her Topamax to 100 mg twice daily. She has indicated that she will call in a prescription to your pharmacy for this medication. I have written you a prescription here in case you have any issues filling this medication. I am putting you on antibiotics based on your complaint of burning with urination possibility of UTI. Please follow-up with neurology at your scheduled appointment. Dr. Reyes is currently working on trying to expedite a repeat MRI and EEG. You need to return to the emergency department for any further episodes of seizures, severe abdominal pain, flank pain, fevers greater than 100.4, repetitive episodes of vomiting, generally feeling unwell, or any other concerns you may have. Hope you begin to feel better soon. Coding Level of Care Code ED People Greeter for Chg Fwd Exam Comprehensive Documented by User: Kilo Gonzalez DO 11/23/21 13:17 HPI - Seizure General: Chief Complaint: Seizure Stated Complaint: SEIZURE Time Seen by Provider: 11/23/21 08:10 PFSH ED PFSH: Medical History No pertinent family history Seizures Physical Exam Neuro: SARAH BETH COMA SCALE: document GCS findings Sarah Beth coma scale total score: 15 Course Vital Signs: Vital signs: Vital Signs Temperature 98.1 F 11/23/21 08:48 Pulse Rate 66 11/23/21 10:49 Respiratory Rate 17 11/23/21 10:49 Blood Pressure 119/75 11/23/21 10:49 Pulse Oximetry 96 11/23/21 10:49 MDM - Seizure MDM Narrative Medical decision making narrative: Patient is a 21-year-old female who presents to ED today for complaints of a seizure that occurred just prior to arrival while she was seated in the break room eating. Patient tells me she has a history of epilepsy. She follows with [facility] neurology-Dr. Reyes. Patient was in our ED 48 hours ago for complaints of a seizure. Prior to these episodes she had not had a seizure in over 3 months. She takes Keppra and Topamax daily for seizures. She also has a history of migraine headaches in which she takes Ubrelvy and Imitrex as needed. I spoke to patient's neurologist today who stated patient is being treated for epilepsy but her diagnosis is not entire clear as her last MRI and EEG were normal. She had requests for these tests to be repeated but according to patient has not been due to her insurance. Dr. Reyes said that she would be creating another note to submit to insurance to get these tests expedited. She recommended increasing patient's Topamax from 50 mg twice daily to 100 mg twice daily. She would call this medication into patient's pharmacy (we will go ahead and write her prescription today just in case there are any issues). Patient had work-up 48 hours ago in our ED consisting of blood work and CT imaging which was essentially negative. She has not had any head trauma today therefore CT imaging not repeated. She had a negative test last visit. Basic labs today are normal. UA is contaminated does look suspicious for UTI. She does complain of some urinary burning and has been taking Azo. Recommended repeat UA however patient states she does not want to drink anything and cannot give repeat sample and refuses cath. We will go ahead and place her on Macrobid based on symptoms. She did complain of a headache today which improved with IV medications. At this time patient is stable for DC with strict return to ED precautions. She has someone that can stay with her for safety over the next 48 hours. Chart reviewed and patient discussed with midlevel. Agree with assessment and plan. Lab Data Result diagrams: 11/23/21 08:25 11/23/21 08:25 Labs: Radiology Impressions Chest X-Ray 11/23/21 08:18
[2021-11-23] MEDS: LORazepam 2 mg/mL INJ 1 mL 1 MG IVP (08:30)
[2021-11-23] MEDS: ondansetron 2 mg/ML SDV 2 mL 4 MG IVP (08:30)
[2021-11-23] MEDS: acetaminophen 1,000 MG/100 ML PIGGYBACK 400 MG IV (08:30)
[2021-11-23 08:46] LABS: Basophils % 0.3 %; Eosinophils % 0.5 %; Hematocrit 44.3 % (37.0-47.0); Hemoglobin 14.9 g/dL (11.5-15.3); Lymphocytes # 1.7 10^3/uL (0.8-4.8); Lymphocytes % 26.5 %; Mean Corpuscular HGB Conc 33.6 g/dL (30.0-36.0); Mean Corpuscular Hemoglobin 29.5 pg (28.0-34.0); Mean Corpuscular Volume 87.7 fl (81-99); Mean Platelet Volume 10.6 fL (7.4-10.4); Monocytes # 0.3 10^3/uL (0.2-0.9); Monocytes % 4.1 %; Neutrophils # 4.31 10^3/uL (1.8-7.7); Neutrophils % 68.1 %; Nucleated Red Blood Cells % 0 %; Platelet Count 208 10^3/cmm (130-400); Red Blood Count 5.05 10^6/uL (4.1-5.3); Red Cell Distribution Width 12.1 % (12.1-15.1); White Blood Count 6.3 10^3/uL (4.0-10.0)
--- NOTE | 2021-11-23 09:06 | PC.NURSE ---
States her HR is usually low, in the 50s, after seizures. She had been incontinent of urine prior to arrival & after her seizure. Currently resting in bed, padded rails, call light w/in reach. Drinking water.
[2021-11-23 09:09] LABS: Lactic Sepsis W/Reflex 1.1 mmol/L (0.5-2.2)
[2021-11-23 09:10] LABS: Alanine Aminotransferase 13 U/L (0-33); Albumin Level 4.7 g/dL (3.5-5.2); Alkaline Phosphatase 53 IU/L (35-105); Aspartate Amino Transferase 14 U/L (0-32); Blood Urea Nitrogen 16 mg/dL (6-20); Carbon Dioxide 24 mmol/L (22-29); Chloride 105 mmol/L (98-107); Globulin 2.2 g/dL (1.3-4.6); Glucose 92 mg/dL (65-115); Osmolality Calculated 291 mOsm/kg (285-295); Sodium 140 mmol/L (136-145); Total Bilirubin 0.9 mg/dL (0.15-1.2); Total Protein 6.9 g/dL (6.6-8.7)
[2021-11-23 09:14] LABS: Anion Gap 15.3 (5-19); Potassium 4.3 mmol/L (3.5-5.1)
[2021-11-23] MEDS: ketorolac 60 mg/2 mL INJ 30 MG IVP (09:37)
[2021-11-23] MEDS: dexamethasone 10 mg/mL INJ 6 MG IV (09:39)
[2021-11-23] MEDS: diphenhydrAMINE 50 mg/mL SDV 1mL 25 MG IVP (09:40)
--- NOTE | 2021-11-23 10:04 | PC.PHAR ---
pt states she takes care of her own medications-pt states she takes the medications entered-[facility] states they havent filled for the pt recently- in [facility] office states the medications entered are the meds they have prescribed for the pt-
[2021-11-23 10:06] LABS: Add Urine Microscopic? YES; Bilirubin Urine Neg (Negative); Blood Urine 2+ (Negative); Glucose Urine UA Norm (Normal); Ketones Urine Negative (Negative); Leukocyte Esterase Urine Trace (Negative); Nitrate Urine Negative (Negative); Protein Urine Neg (Negative); Urine Appearance Cloudy (CLEAR); Urine Color Yellow (Yellow); Urobilinogen Urine Norm (Negative); pH Urine 5 (5-7)
[2021-11-23 10:07] LABS: Bacteria Urine 1+ /hpf; Squamous Epithelial Cell Urine 25-40 /hpf (0-5); WBC Urine 25-40 /hpf (0-5)
== END 2021-11-23 12:21 | disposition home or self-care (01) ==
PROVIDERS: Emergency Provider Physician Assistant
DX: G40.909 Epilepsy, unspecified, not intractable, without status epilepticus (principal); G43.909 Migraine, unspecified, not intractable, without status migrainosus; N30.01 Acute cystitis with hematuria
CPT/HCPCS: 71045; 80053; 81001; 83605; 85025; 96374; 96375; 99284; J1100; J1200; J1885; J2060; J2405

== ENCOUNTER 2022-04-16 08:02 | Outpatient (CLI) | payer OTHER, SELFPAY ==
[2022-04-16 08:10] LABS: SARS Covid-2 Antigen Positive (Negative)
== END 2022-04-16 08:03 | disposition home or self-care (01) ==
PROVIDERS: Visit Provider Physician Assistant
DX: R06.02 Shortness of breath (principal)
CPT/HCPCS: 87426

== ENCOUNTER 2022-06-09 08:54 | Emergency (ER) | payer OTHER, SELFPAY ==
[2022-06-09] VITALS (11 sets, daily range): BP systolic 122–150; BP diastolic 68–88; PULSE 65–101; RESP 15–21; O2SAT 97–100; BMI 31.8
--- NOTE | 2022-06-09 09:18 | W.ED.SEIZURE ---
HPI - Seizure General: Chief Complaint: Seizure Stated Complaint: seizure Time Seen by Provider: 06/09/22 09:06 Source: patient Mode of arrival: ambulatory History of Present Illness: HPI Narrative: 21-year-old female history of seizure disorder had 2 seizures this morning's been a few months and she had breakthrough seizures. She is on valproic acid and Keppra. She missed a dose yesterday morning had a generalized tonic-clonic seizure x2. The time she arrives here postictal phase is already resolved. She is awake and alert. She is somewhat emotional. Seizure History: Yes Associated symptoms: Deny chest pain, chills, fever(s) or malaise Review of Systems Const: Denies: fever(s), chills, body aches, change in appetite, fatigue or malaise ENMT: Denies: throat pain, ear or mastoid pain, nasal discharge or nasal congestion Card: Denies: chest pain, edema, dyspnea on exertion or orthopnea Resp: Denies: dyspnea, productive cough or non-productive cough GI: Denies: abdominal pain, nausea, vomiting, hematemesis, coffee ground emesis, diarrhea, constipation, bloating, hematochezia or melena : Denies: flank pain, difficulty voiding, dysuria, urinary frequency or urinary urgency Skin/Breast: Denies: rash or pruritus PFSH ED PFSH: Medical History No pertinent family history Seizure disorder Seizures Social History Smoking and tobacco status: never smoked Alcohol intake: never Physical Exam Const: GENERAL APPEARANCE: cooperative and comfortable ORIENTATION/CONSCIOUSNESS: Yes awake HENMT: COMMON NORMALS: normocephalic, atraumatic, hearing grossly normal bilaterally, external ears normal, EAC's normal, TM's normal bilaterally, Normal nasal mucous membranes and turbinates present, moist oral mucous membranes and oropharynx normal HEAD & SCALP: normocephalic and atraumatic NOSE: Normal nasal mucous membranes and turbinates present EXTERNAL EAR: Yes external ears normal EXTERNAL AUDITORY CANAL: EAC's normal TYMPANIC MEMBRANE: TM's normal bilaterally Eye: COMMON NORMALS: Equal, round and reactive pupils present, EOMs intact bilaterally, conjunctivae normal and no scleral icterus CONJUNCTIVA: Yes conjunctivae normal PUPIL: Yes Equal, round and reactive pupils present Neck/C-Spine: COMMON NORMALS: full ROM, no lymphadenopathy and supple Lymph: LYMPHATIC: no lymphadenopathy noted and no lymphedema noted Resp: COMMON NORMALS: normal respiratory effort, No retractions, No use of accessory muscles and clear to auscultation bilaterally AUSCULTATION: clear to auscultation bilaterally Cardio: COMMON NORMALS: regular rate, regular rhythm and No murmurs present (Cardio) RATE: regular rate RHYTHM: regular rhythm GI: COMMON NORMALS: Soft to palpation and No hepatosplenomegaly present AUSCULTATION: Yes normoactive bowel sounds PALPATION: Yes Soft to palpation, No Tenderness to palpation present (GI), No Guarding due to palpation present (GI) and Yes No hepatosplenomegaly present Extremity: COMMON NORMALS: normal to inspection, capillary refill normal, no clubbing, cyanosis or edema, no calf tenderness and no pedal edema Skin: COMMON NORMALS: no rashes or lesions noted GENERAL SKIN EXAM: no rashes or lesions noted Course Vital Signs: Vital signs: Vital Signs Pulse Rate 65 06/09/22 11:15 Respiratory Rate 18 06/09/22 11:15 Blood Pressure 122/76 06/09/22 11:30 Pulse Oximetry 97 06/09/22 11:15 Oxygen Delivery Me thod 06/09/22 09:07 MDM - Seizure MDM Narrative Medical decision making narrative: Discharge home will refer to neurology. Resume regular medications including Keppra and topiramate. Lab Data Labs: Laboratory Results POC Glucose 85 mg/dL (70-110) 06/09/22 09:44 Valproic Acid 2.8 ug/mL (50-100) L 06/09/22 09:24 Levetiracetam 35.3 mcg/mL (6.0-46.0) 06/09/22 09:19 Discharge Plan Discharge Patient Disposition: Home Clinical Impression: Seizure disorder Condition: Stable Prescriptions: No Action Mirena 20 mcg/24 hours (7 yrs) 52 mg Intrauterine Device See Rx Instructions .ROUTE .COMPLEX Rx Instructions: intrauterinely as directed acetaminophen [Tylenol Ex Str Rapid Release] 500 mg Tablet 1,000 mg PO Q6H PRN (Reason: Pain) sumatriptan succinate [Imitrex] 100 mg Tablet 100 mg PO Q2H PRN (Reason: Migraine Headache) Rx Instructions: do not exceed 2 doses per 24 hrs levetiracetam [Keppra] 750 mg Tablet 750 mg PO BID Ubrelvy 50 mg Tablet 50 mg PO DAILY PRN (Reason: Migraine Headache) topiramate 50 mg tablet 50 mg PO BID Discharge Orders: Discharge ED (Routine); Ordered 06/09/22 Ordered By: Kilo Gonzalez Discharge Diet: Usual diet Discharge Activity: Limit activity as instructed Patient Instructions: Opioid Safety, Pain Management Stand Alone Forms: Work/School Release Coding Level of Care Code ED Pharmacology Teacher for José Miguel Noriega
--- NOTE | 2022-06-09 09:19 | PC.NURSE ---
Addendum entered by Kelsey Marshall RN 06/09/22 10:14: seizure pads in place Original Note: reports hx of seizures that she takes medications for. reports yesterday morning she missed a dose of her medications due to being out but that she got it filled yesterday. denies any recent illness, chance of , or change in sleep patterns. reports today she had two seizures. currently reports nausea. requesting lights dimmed. light dimmed and warm blankets given for comfort. lung sounds clear bilat. speech clear. speaking in complete sentences without difficulty.
[2022-06-09 09:46] LABS: Glucose Point of Care 85 mg/dL (70-110)
[2022-06-09 09:48] LABS: Valproic Acid Level 2.8 ug/mL (50-100)
[2022-06-09] MEDS: topiramate 100 mg Tablet 200 MG PO (10:03)
--- NOTE | 2022-06-09 10:47 | PC.NURSE ---
pt ambulatory to and from restroom with slight limp. pt c/o right hip pain. physician notified.
[2022-06-10 15:03] LABS: Levetiracetam Immunoassy 35.3 mcg/mL (6.0-46.0)
--- NOTE | 2022-06-20 10:35 | PC.SOCIAL ---
Addendum entered by Araceli Hancock 08/23/22 13:30: Patient had a follow up appointment scheduled with neurology - patient did not attend appointment. Addendum entered by Araceli Hancock 06/29/22 13:42: Patient has a follow up appointment scheduled for Tuesday, August 09, 2022 at 10:[address] Jose at neurology. Clinic will call patient with appointment information. Original Note: Neurology F/u Consult received on 06/18 for neurology f/u for seizures. Attempted to reach patient to see if she has already established with neurologist, or would like to be set up with [facility] neurology. Unable to reach her. Message sent to [facility] neurology scheduling. Clinic will contact patient with appointment date and time.
== END 2022-06-09 12:21 | disposition home or self-care (01) ==
PROVIDERS: Emergency Provider Family Medicine
DX: G40.909 Epilepsy, unspecified, not intractable, without status epilepticus (principal)
CPT/HCPCS: 36416; 80164; 80177; 82962; 96365; 99284; J1953

== ENCOUNTER → 2022-07-06 10:40 | Outpatient (BNVA) | payer OTHER, SELFPAY | PROVIDERS: Visit Provider Nurse Practitioner Women's Health | DX: Z32.00 Encounter for pregnancy test, result unknown (principal); N92.6 Irregular menstruation, unspecified; G40.909 Epilepsy, unspecified, not intractable, without status epilepticus | CPT/HCPCS: 81025 ==

== ENCOUNTER → 2022-09-07 10:00 | Outpatient (BNVA) | payer BC, MEDICAID, SELFPAY | PROVIDERS: Visit Provider Nurse Practitioner Women's Health | DX: O09.91 Supervision of high risk pregnancy, unspecified, first trimester (principal); G40.909 Epilepsy, unspecified, not intractable, without status epilepticus; N92.6 Irregular menstruation, unspecified; Z3A.00 Weeks of gestation of pregnancy not specified | CPT/HCPCS: 80307; 81000; 82950; 85025; 86592; 86762; 86803; 86850; 86900; 87086; 87340; 87491; 87591; 87661; 87806; 88175 ==

== ENCOUNTER → 2022-10-07 10:20 | Outpatient (BNVA) | payer BC, MEDICAID, SELFPAY | PROVIDERS: Visit Provider Obstetrics & Gynecology | DX: O09.90 Supervision of high risk pregnancy, unspecified, unspecified trimester (principal); R82.90 Unspecified abnormal findings in urine; Z3A.00 Weeks of gestation of pregnancy not specified | CPT/HCPCS: 81000; 87086 ==

== ENCOUNTER 2022-10-31 14:06 | Outpatient (CLI) | payer BC, MEDICAID, SELFPAY ==
[2022-10-31] VITALS (9 sets, daily range): BP systolic 99–115; BP diastolic 52–68; PULSE 71–79; RESP 17; BMI 36.3
[2022-10-31] MEDS: acetaminophen 500 mg Tablet 1000 MG PO (15:46)
[2022-10-31 15:55] LABS: Bacteria Urine TRACE /hpf; Bilirubin Urine Neg (Negative); Blood Urine Neg (Negative); Glucose Urine UA Norm (Normal); Ketones Urine Negative (Negative); Leukocyte Esterase Urine Negative (Negative); Mucus Urine TRACE /hpf; Nitrate Urine Negative (Negative); Protein Urine Neg (Negative); Specific Gravity, Urine 1.015 (1.005-1.030); Urine Appearance Clear (CLEAR); Urine Color Yellow (Yellow); Urobilinogen Urine Norm (Negative); WBC Urine 0-4 /hpf (0-5); pH Urine 6.5 (5-7)
[2022-10-31 15:56] LABS: Add Urine Culture? No
[2022-10-31 16:04] LABS: Actim Prom Negative
== END 2022-10-31 16:30 | disposition home or self-care (01) ==
LOC: OPOB 14:07 → OBGYN 14:09
PROVIDERS: Absent Provider Obstetrics & Gynecology; Visit Provider Obstetrics & Gynecology
DX: O26.899 Other specified pregnancy related conditions, unspecified trimester (principal); Z3A.00 Weeks of gestation of pregnancy not specified; R10.9 Unspecified abdominal pain
CPT/HCPCS: 81001; 84112; 99211

== ENCOUNTER → 2022-11-02 13:30 | Outpatient (BNVA) | payer BC, MEDICAID, SELFPAY | PROVIDERS: Visit Provider Nurse Practitioner Women's Health | DX: O09.899 Supervision of other high risk pregnancies, unspecified trimester (principal) | CPT/HCPCS: 81000 ==

== ENCOUNTER → 2022-11-28 09:44 | Outpatient (BNVA) | payer BC, MEDICAID, SELFPAY | PROVIDERS: Visit Provider Obstetrics & Gynecology | DX: O09.899 Supervision of other high risk pregnancies, unspecified trimester (principal) | CPT/HCPCS: 81000; 82950; 85025; 87086 ==

== ENCOUNTER → 2022-12-12 09:30 | Outpatient (BNVA) | payer BC, MEDICAID, SELFPAY | PROVIDERS: Visit Provider Obstetrics & Gynecology | DX: O09.899 Supervision of other high risk pregnancies, unspecified trimester (principal) | CPT/HCPCS: 81000 ==

== ENCOUNTER 2022-12-21 21:22 | Outpatient (CLI) | payer BC, MEDICAID, SELFPAY ==
[2022-12-21 21:25] VITALS: RESP 18
[2022-12-21 21:27] VITALS: BP 123/55; PULSE 87
[2022-12-21 21:28] VITALS: BMI 40.4
[2022-12-21 21:42] VITALS: BP 105/53; PULSE 78
--- NOTE | 2022-12-21 21:43 | USR_ITS ---
PROCEDURE INFORMATION: Exam: US , Limited Exam date and time: 12/21/2022 9:56 PM Age: 22 years old Clinical indication: Injury or trauma; Fall; Blunt trauma; Left lower quadrant; Injury date: 12/21/2022; Injury details: Patient is experiencing acute left hip pain, back pain. No vaginal bleeding. ; Additional info: Fell, check for placental abpruption LABS AND CLINICAL REPORTS: Last menstrual period start date: 05/07/2022 Gestational age (Established): 32 w 4 d Estimated due date (Established): 02/11/2023 TECHNIQUE: Imaging protocol: Real-time ultrasound of the maternal uterus with image documentation. Exam focused on the clinical indication. COMPARISON: US OB >= 14 weeks fetus [facility] 10/04/2022 1:12 PM FINDINGS: Gestation: Single intrauterine . heart rate: 133 bpm presentation: Cephalic Placenta: Posterior and Rightplacenta without previa. Amniotic fluid index: JONA is 15 cm. US/US OB limited [id number] IMPRESSION: Single live intrauterine without abnormality. Negative for ultrasonographic evidence of placental abruption.
[2022-12-21] MEDS: acetaminophen 500 mg Tablet 1000 MG PO (22:26)
[2022-12-21] MEDS: cyclobenzaprine 10 mg Tablet PO (23:10)
== END 2022-12-21 23:15 | disposition home or self-care (01) ==
LOC: OPOB 21:23 → OBGYN 22:30
PROVIDERS: Visit Provider Obstetrics & Gynecology
DX: O9A.219 Injury, poisoning and certain other consequences of external causes complicating pregnancy, unspecified trimester (principal); S39.91XA Unspecified injury of abdomen, initial encounter; W19.XXXA Unspecified fall, initial encounter; Z3A.00 Weeks of gestation of pregnancy not specified
CPT/HCPCS: 59025; 76815; 99211

== ENCOUNTER → 2022-12-26 11:17 | Outpatient (BNVA) | payer BC, MEDICAID, SELFPAY | PROVIDERS: Visit Provider Obstetrics & Gynecology | DX: O09.899 Supervision of other high risk pregnancies, unspecified trimester (principal) | CPT/HCPCS: 81000; 85025 ==

== ENCOUNTER → 2023-01-09 08:31 | Outpatient (BNVA) | payer BC, MEDICAID, SELFPAY | PROVIDERS: Visit Provider Obstetrics & Gynecology | DX: O09.899 Supervision of other high risk pregnancies, unspecified trimester (principal) | CPT/HCPCS: 81000; 87086 ==

== ENCOUNTER → 2023-01-16 11:45 | Outpatient (BNVA) | payer BC, MEDICAID, SELFPAY | PROVIDERS: Visit Provider Obstetrics & Gynecology | DX: O09.899 Supervision of other high risk pregnancies, unspecified trimester (principal) | CPT/HCPCS: 81000; 85025; 87081 ==

== ENCOUNTER → 2023-01-23 14:09 | Outpatient (BNVA) | payer BC, MEDICAID, SELFPAY | PROVIDERS: Visit Provider Obstetrics & Gynecology | DX: O09.899 Supervision of other high risk pregnancies, unspecified trimester (principal) | CPT/HCPCS: 81000 ==

== ENCOUNTER 2023-01-31 21:30 | Outpatient (CLI) | payer BC, MEDICAID, SELFPAY ==
[2023-01-31] VITALS (9 sets, daily range): BP systolic 132–142; BP diastolic 68–81; PULSE 88–96; RESP 16; TEMP 35.9–36.2; BMI 40.7
[2023-01-31 22:29] LABS: Bilirubin Urine Neg (Negative); Blood Urine Neg (Negative); Glucose Urine UA Norm (Normal); Ketones Urine 1+ (Negative); Leukocyte Esterase Urine Negative (Negative); Nitrate Urine Negative (Negative); Protein Urine Neg (Negative); Specific Gravity, Urine 1.015 (1.005-1.030); Urine Appearance Clear (CLEAR); Urine Color Yellow (Yellow); Urobilinogen Urine Norm (Negative); WBC Urine 0-4 /hpf (0-5); pH Urine 6.5 (5-7)
[2023-01-31 22:30] LABS: Add Urine Culture? No; Bacteria Urine 1+ /hpf
== END 2023-01-31 23:18 | disposition home or self-care (01) ==
LOC: OPOB 21:32 → OBGYN 21:33
PROVIDERS: Visit Provider Obstetrics & Gynecology
DX: O47.9 False labor, unspecified (principal); Z3A.00 Weeks of gestation of pregnancy not specified
CPT/HCPCS: 59025; 81001; 99211

== ENCOUNTER → 2023-02-01 14:00 | Outpatient (BNVA) | payer BC, MEDICAID, SELFPAY | PROVIDERS: Visit Provider Obstetrics & Gynecology | DX: O09.899 Supervision of other high risk pregnancies, unspecified trimester (principal) | CPT/HCPCS: 81000 ==

== ENCOUNTER 2023-02-07 12:36 | Inpatient (IN) | payer BC, MEDICAID, SELFPAY ==
[2023-02-07] VITALS (19 sets, daily range): BP systolic 115–144; BP diastolic 63–84; PULSE 77–120; RESP 15; TEMP 36.6–36.7; BMI 40.1
[2023-02-07 12:45] LABS: Basophils % 0.5 %; Eosinophils % 0.5 %; Hematocrit 35.9 % (37.0-47.0); Hemoglobin 11.9 g/dL (11.5-15.3); Lymphocytes # 1.5 10^3/uL (0.8-4.8); Lymphocytes % 17.1 %; Mean Corpuscular HGB Conc 33.1 g/dL (30.0-36.0); Mean Corpuscular Volume 84.5 fl (81-99); Mean Platelet Volume 11.7 fL (7.4-10.4); Monocytes # 0.6 10^3/uL (0.2-0.9); Monocytes % 6.5 %; Neutrophils # 6.45 10^3/uL (1.8-7.7); Neutrophils % 73.6 %; Nucleated Red Blood Cells % 0 %; Platelet Count 166 10^3/cmm (130-400); Red Blood Count 4.25 10^6/uL (4.1-5.3); Red Cell Distribution Width 13.2 % (12.1-15.1); White Blood Count 8.8 10^3/uL (4.0-10.0)
[2023-02-07] MEDS: miSOPROStol 100 mcg tablet 25 MCG VAGINAL ×2 (13:03→18:10)
[2023-02-07] MEDS: calcium carbonate 500 mg Chew Tablet 1000 MG PO (13:03)
[2023-02-07] MEDS: dextrose 5%-lactated ringers 1,000 ML 125 ML IV (13:03)
[2023-02-07] MEDS: alum-mag-hydroxide-sime 30 mL UDC PO (23:56)
[2023-02-08] VITALS (66 sets, daily range): BP systolic 78–140; BP diastolic 46–83; PULSE 60–200; RESP 16–17; TEMP 36.4–36.9; O2SAT 96–100
[2023-02-08] MEDS: calcium carbonate 500 mg Chew Tablet 1000 MG PO (03:48)
[2023-02-08] MEDS: lactated ringers 1,000 ML 999 ML IV ×2 (04:54→06:02)
[2023-02-08] MEDS: ondansetron 2 mg/ML SDV 2 mL 4 MG IVP (05:45)
--- NOTE | 2023-02-08 06:07 | ANES.PREANE2 ---
Pre-Anesthetic Assessment Height/Weight: Height 1.6 m Weight 102.965 kg Temp Pulse Resp BP O2 Del Method 97.7 F 98 15 117/63 Room Air 02/08/23 00:54 02/08/23 05:55 02/07/23 12:49 02/08/23 05:55 02/07/23 11:50 Preop Diagnosis: labor epidural Familial anesthetic complications: none Was Beta Julio taken within 24 hours: N/A Was Clonidine taken within 24 hours: N/A Last Intake: 22:00 Exam alert, oriented x 3, clear to auscultation bilaterally and regular rate & rhythm Airway Submandibular: within normal limits Cervical ROM: within normal limits Mallampati: Class II Dentition: full Pulmonary None reported CV/HEM None reported None reported Hepatic None reported GI Gastroesophageal Reflux Disease (with ) Metabolic Morbid Obesity [facility] [place] None reported Neuropsych Seizure (stopped meds since . ) Anesthetic Plan ASA status: 2 Anesthesia: Regional (specify below) (epidural) Risk of > 500 ml blood loss (7ml/kg in children): Yes, adequate IV access and fluids planned Medications/Allergies Home Medications Medication Instructions Recorded Confirmed Last Taken Type No Known Home Medications 10/07/22 02/01/23 Unknown History Allergies Allergy/AdvReac Type Severity Reaction Status Date / Time No Known Allergies Allergy Verified 02/01/23 14:46 Current Medications Generic Name Dose Route Start Last Admin Trade Name Freq PRN Reason Stop Dose Admin Al Hydrox/Mg Hydrox/Simethicone 30 ml 02/07/23 12:36 02/07/23 23:56 Wlqi-Jqz-Nsgdlvpaf-Sabas 30 Ml Udc PO 30 ml Q4H PRN Administration Indigestion (Use 2nd) Calcium Carbonate 1,000 mg 02/07/23 12:36 02/08/23 03:48 Calcium Carbonate 500 Mg Chew Tablet PO 1,000 mg Q4H PRN Administration Heartburn/Indigestion (Use 1st) Lactated Ringer's 1,000 mls @ 999 mls/hr 02/07/23 12:36 02/08/23 06:02 Lactated Ringers IV 999 mls/hr .Q1H1M PRN Administration Per L&D Rescitation Protocol Dextrose/Lactated Ringer's 1,000 mls @ 125 mls/hr 02/07/23 12:45 02/07/23 13:03 Dextrose 5%-Lactated Ringers IV 125 mls/hr .Q8H RITU Administration Oxytocin 30 unit/ Sodium 503 mls @ 1 mls/hr 02/08/23 02:30 02/08/23 03:45 Chloride IV 2 mls/hr .Q24H RITU 2 mls/hr Titration Protocol Ondansetron HCl 4 mg 02/07/23 12:36 02/08/23 05:45 Ondansetron 2 Mg/Ml Sdv 2 Ml IVP 4 mg Q4H PRN Administration NAUSEA AND VOMITING PFSH Anesthesia Medical History History of migraine No pertinent past medical history neghx: htn,dm,thyroid,dvt/pe PCP: Kirsten Machado Seizure disorder Dx'd in 03/2020; started on Keppra. At this poitn being called syncopal seizures; being tested for POTS. Eval by [facility]. Last seizure 06/08/2022. Surgical History No pertinent past surgical history Family History Grandmother Colon cancer Paternal--dx age unknown Hypertension Maternal Mother Diabetes Hypertension Denies family history of Ovarian cancer Hyperlipidemia Breast cancer Uterine cancer Thyroid disease Stroke Social History Smoking and tobacco status: never smoked Substance/Drug Use: never Female Reproductive History : 3 Data Anesthesia 02/07/23 12:21 Short CBC 02/07/23 Range/Units 12:21 WBC 8.8 (4.0-10.0) 10^3/uL Hgb 11.9 (11.5-15.3) g/dL Hct 35.9 L (37.0-47.0) % MCV 84.5 (81-99) fl Plt Count 166 (130-400) 10^3/cmm Neut % (Auto) 73.6 % Neut # (Auto) 6.45 (1.8-7.7) 10^3/uL Cardiac Studies: No Data to Display
--- NOTE | 2023-02-08 06:22 | PM.OPHPUD ---
Labor & Delivery H&P Update Date of Procedure: February 08, 2023 Date H&P Performed: 02/01/23 H&P update information: I have reviewed H&P completed within last 30 days, I have examined patient prior to procedure and No changes to prior documentation Admission Diagnosis: Preop diagnosis: labor Related Problem List Diagnoses (1) Obesity: (2) Supervision of other high-risk : (3) Seizure disorder:
--- NOTE | 2023-02-08 06:41 | ANES.PROC ---
Anesthesia Procedures Procedure/Date: 02/08/23 Epidural: Time Out Performed: Yes Consents Signed: Procedure Consent and NPO Consent Consent: requested by attending/covering physician, from patient, risks and benefits reviewed, patient agrees to proceed and emergency procedure Lumbar Level: L3-L4 Epidural position: sitting Epidural procedure: sterile prep of area (betadine), 1% lidocaine to numb the area (3ml), 18 g needle, neg for paresthesia, test dose given, 1.5% xylocaine 1:200k epi (3ml/2ml), 0.2% Ropivacaine bolus ml (5ml), placed PCEA, no systemic response, sterile dressing applied, L.U.D. no apparent complications and 0.2% Ropiavacaine @ mls/hr (10ml/hr)
[2023-02-08] MEDS: metoclopramide 5 mg/mL SDV 2 mL 10 MG IV (07:45)
[2023-02-08] MEDS: dextrose 5%-lactated ringers 1,000 ML 125 ML IV (07:45)
--- NOTE | 2023-02-08 08:43 | PM.DELIVERY ---
Delivery Note: Date of delivery: February 08, 2023 Pre-delivery diagnoses: IUP@ 39w4d, Obesity, seizure disorder Post-delivery diagnoses: same-delivered Procedure: Delivering Physician: Dr. Deshpande Estimated blood loss (mL): 50 Findings: Term male in the cephalic presentation Delivery: The patient had complete cervical dilation and began to push. The head delivered in the DARCIE position over an intact perineum under epidural anesthesia. The nose and mouth were bulb suctioned. The shoulders and body delivered atraumatically. The baby was placed onto the mother's abdomen. The cord was clamped and cut. The placenta delivered spontaneously. It was inspected and found to be intact. The patient had uterine atony. She was given a dose of methergine and 800 mcg of cytotec as well as fundal massage. The atony resolved. Inspection of the perineum revealed no lacerations and no repair was required. Estimated blood loss 50 mL. Apgars on baby were 8 at 1 minute and 9 at 5 minutes. Weight of baby is 8 pounds 2 ounces. Mother and baby were stable post delivery. History History History 3 Term 2 0 Miscarriages/Ectopic 0 Living Children 2 Coding Level of Care Code Acute Code for Chg Fwd Diagnoses
[2023-02-08] MEDS: miSOPROStol 200 mcg Tablet 800 MCG PR (08:49)
[2023-02-08] MEDS: methylergonovine 0.2 mg/mL INJ 1 mL IM (08:49)
[2023-02-08] MEDS: ibuprofen 800 mg tablet PO ×3 (09:40→21:00)
[2023-02-08] MEDS: benzocaine-menthol 78 gm Canister 1 SPRAY TOPICAL (09:41)
[2023-02-08] MEDS: prenatal vitamin Capsule 1 CAP PO (09:41)
[2023-02-08] MEDS: lanolin oint 7 gm 1 APPLIC TOPICAL (09:41)
[2023-02-08] MEDS: docusate sodium 100 mg Capsule PO ×2 (09:41→21:00)
--- NOTE | 2023-02-08 10:57 | PC.NURSE ---
pt up to bathroom without assistance. large void, not in hat. oscar care performed by pt. pad, underwear, gown changed. bed linens changed. pt back to bed without difficulty. ice water refilled. denies further needs at this time
--- NOTE | 2023-02-08 14:45 | PC.NURSE ---
ambulated to OB 8. oriented to room, call light, and proud parent pack/feeding log.
[2023-02-08 21:15] LABS: Hematocrit 32.2 % (37.0-47.0); Hemoglobin 10.7 g/dL (11.5-15.3); Mean Corpuscular HGB Conc 33.2 g/dL (30.0-36.0); Mean Corpuscular Hemoglobin 27.9 pg (28.0-34.0); Mean Corpuscular Volume 83.9 fl (81-99); Mean Platelet Volume 11.4 fL (7.4-10.4); Platelet Count 143 10^3/cmm (130-400); Red Blood Count 3.84 10^6/uL (4.1-5.3); Red Cell Distribution Width 13.1 % (12.1-15.1); White Blood Count 9.6 10^3/uL (4.0-10.0)
[2023-02-09 05:04] VITALS: BP 118/61; PULSE 68; RESP 16; TEMP 36.7
--- NOTE | 2023-02-09 08:00 | ANE.PACU2 ---
Inpatient post-anesthesia follow up: Airway intact: Yes Vital signs: Temperature 98.0 F Pulse Rate 65 Respiratory Rate 15 Blood Pressure 109/65 Pulse Oximetry 99 Oxygen Delivery Me thod Room Air Oxygen Flow Rate Fraction of Inspir ed Oxygen Hydration adequate: Yes Nausea and vomiting: Yes Pain level: 1 Mental status: Baseline
--- NOTE | 2023-02-09 08:09 | PM.DCS ---
Discharge Providers Date of Admission: 02/07/23 12:36 Date of Discharge: February 09, 2023 Attending Provider at Admission: Ana Deshpande MD Attending Provider at Discharge: Ana Deshpande MD Diagnoses at Discharge Discharge Diagnosis (1) Obesity: Status: Acute (2) Supervision of other high-risk : Status: Acute (3) Seizure disorder: Status: Acute Permanent problem details: Dx'd in 03/2020; started on Keppra. At this poitn being called syncopal seizures; being tested for POTS. Eval by [facility]. Last seizure 06/08/2022. Reason for Visit Reason for Visit: Induction Hospital Course Hospital Course The patient was admitted for induction at term. She had spontaneous delivery of a term . She did well and requested discharge on day #1 Physical Exam Narrative: The patient is doing well. No concerns. Const: COMMON NORMALS: no acute distress, patient oriented x3, no limitations, alert and well nourished GENERAL APPEARANCE: cooperative, comfortable, well kempt and well developed ORIENTATION/CONSCIOUSNESS: Yes awake, Yes oriented to person, Yes oriented to place and Yes oriented to time Resp: COMMON NORMALS: normal respiratory effort EFFORT & INSPECTION: Yes able to speak in complete sentences GI: COMMON NORMALS: Soft to palpation and non-tender PALPATION: Yes Soft to palpation Extremity: COMMON NORMALS: no calf tenderness Neuro: COMMON NORMALS: patient oriented x3 SENSORIUM/ORIENTATION: Yes alert, Yes oriented to person, Yes oriented to place and Yes oriented to time Psych: COMMON NORMALS: mental status grossly normal, Normal thought process present, cooperative, normal affect and speech normal APPEARANCE: Yes well kempt SPEECH: Yes normal speech THOUGHT PROCESS: Normal thought process present Urinary Catheter Management: [place] Latex: Cath Placed During This Visit: yes, but has since been removed by the nurse Reason for Continuing Indwelling Catheter: Decision to DC Catheter Urinary Catheter Date of Insertion: 02/08/23 Urinary Catheter Time of Insertion: 07:37 Date Urinary Catheter Removed: 02/08/23 Time Urinary Catheter Discontinued: 08:20 Discharge Data Studies Completed and Pending Laboratory Results WBC 9.6 10^3/uL (4.0-10.0) 02/08/23 21:05 RBC 3.84 10^6/uL (4.1-5.3) L 02/08/23 21:05 Hgb 10.7 g/dL (11.5-15.3) L 02/08/23 21:05 Hct 32.2 % (37.0-47.0) L 02/08/23 21:05 MCV 83.9 fl (81-99) 02/08/23 21:05 MCH 27.9 pg (28.0-34.0) L 02/08/23 21:05 MCHC 33.2 g/dL (30.0-36.0) 02/08/23 21:05 RDW 13.1 % (12.1-15.1) 02/08/23 21:05 Plt Count 143 10^3/cmm (130-400) 02/08/23 21:05 MPV 11.4 fL (7.4-10.4) H 02/08/23 21:05 Neut % (Auto) 73.6 % 02/07/23 12:21 Lymph % (Auto) 17.1 % 02/07/23 12:21 [place] % (Auto) 6.5 % 02/07/23 12:21 Eos % (Auto) 0.5 % 02/07/23 12:21 Baso % (Auto) 0.5 % 02/07/23 12:21 Neut # (Auto) 6.45 10^3/uL (1.8-7.7) 02/07/23 12:21 Lymph # (Auto) 1.5 10^3/uL (0.8-4.8) 02/07/23 12:21 [place] # (Auto) 0.6 10^3/uL (0.2-0.9) 02/07/23 12:21 Eos # (Auto) 0.0 10^3/uL (0.0-0.8) 02/07/23 12:21 Baso # (Auto) 0.0 10^3/uL (0.0-0.1) 02/07/23 12:21 Nucleated RBC % (auto) 0 % 02/07/23 12:21 Nucleated RBCs # 0.0 /100WBC 02/07/23 12:21 Vitals Last Vital Signs Temp 98.0 F 02/09/23 05:04 Pulse 68 02/09/23 05:04 Resp 16 02/09/23 05:04 BP 118/61 02/09/23 05:04 Pulse Ox 99 02/08/23 22:23 O2 Del Method Room Air 02/08/23 22:23 Discharge Plan Discharge Patient Disposition: Home Condition: Stable Prescriptions: Continued No Known Home Medications Discharge Orders: Discharge Order (Routine); Ordered 02/09/23 Ordered By: Ana Deshpande Patient Instructions: Opioid Safety Discharge Attestations Time Spent in Discharge Care*: less than 30 min Quality Metrics Clinical Quality Measures [ No reported AMI, CVA or VTE this stay] Coding Level of Care Code Acute Code for Chg Fwd Diagnoses Obesity E66.9 Supervision of other high-risk O09.899 Seizure disorder G40.909
[2023-02-09] MEDS: prenatal vitamin Capsule 1 CAP PO (09:11)
[2023-02-09] MEDS: ibuprofen 800 mg tablet PO (09:11)
[2023-02-09] MEDS: docusate sodium 100 mg Capsule PO (09:11)
[2023-02-09 09:20] VITALS: BP 109/65; PULSE 65; RESP 15; O2SAT 99
[2023-02-09 11:18] VITALS: BP 109/65; PULSE 65; RESP 15; O2SAT 99
== END 2023-02-09 11:42 | disposition home or self-care (01) | DRG 807 ==
LOC: OPOB 02-08 07:36 → OBGYN 02-08 07:36
PROVIDERS: Admitting Provider Obstetrics & Gynecology; Visit Provider Obstetrics & Gynecology
DX: O99.214 Obesity complicating childbirth (principal); Z37.0 Single live birth; Z3A.39 39 weeks gestation of pregnancy; O75.89 Other specified complications of labor and delivery; G40.909 Epilepsy, unspecified, not intractable, without status epilepticus
CPT/HCPCS: 36415; 51702; 59025; 59409; 85025; 85027; 96372; 96374; J2210; J2405; J2765; J7040; J7120; J7121

== ENCOUNTER → 2023-08-17 13:49 | Outpatient (BNVA) | payer BC, MEDICAID, SELFPAY | PROVIDERS: PCP Nurse Practitioner Family; Visit Provider Internal Medicine | DX: R07.9 Chest pain, unspecified (principal); R55 Syncope and collapse; I95.1 Orthostatic hypotension; R94.31 Abnormal electrocardiogram [ECG] [EKG] | CPT/HCPCS: 93005 ==

== ENCOUNTER 2023-08-31 08:59 | Outpatient (CLI) | payer BC, MEDICAID, SELFPAY ==
--- NOTE | 2023-08-31 09:15 | USCV_ITS ---
Isrrael Morales Age: 23 Gender: F : 2000 Exam Date: 08/31/2023 09:10 Ordering Phys: Yair Gutierrez M.D ([email or web address]) Technologist: Andres Deleon Exam Location: [facility] [place] Indication: syncope dzzy BP: 100 / 65 HR: 65 Rhythm: Sinus Technical Quality: Adequate MEASUREMENTS (Male / Female) Normal Values 2D ECHO LV Diastolic Diameter PLAX 4.3 cm 4.2 - 5.9 / 3.9 - 5.3 cm LV Systolic Diameter PLAX 3.0 cm IVS Diastolic Thickness 0.9 cm 0.6 - 1.0 / 0.6 - 0.9 cm IVS Systolic Thickness 1.1 cm LVPW Diastolic Thickness 1.3 cm 0.6 - 1.0 / 0.6 - 0.9 cm LVPW Systolic Thickness 1.3 cm LVOT Diameter 2.0 cm LV Ejection Fraction 2D Teich 57.3 % LV Ejection Fraction MOD 2C 71.9 % LV Ejection Fraction 2C AL 72.0 % LA Diameter 3.4 cm IVC Diameter 2.0 cm M-MODE Aortic Annulus Diameter 2.3 cm LA Ao Ratio MM 1.5 MV E Point Septal Separation 0.8 cm DOPPLER AV Peak Velocity 166.0 cm/s LVOT Peak Velocity 118.0 cm/s AV Area Cont Eq vti 2.1 cm squared AV Area Cont Eq pk 2.3 cm squared MV Area PHT 3.7 cm squared Mitral E to A Ratio 1.7 MV E' Velocity 64.5 cm/s Mitral E to MV E' Ratio 6.5 Mitral E to LV E' Lateral Ratio 6.1 Mitral E to LV E' Septal Ratio 7.0 TR Peak Velocity 226.8 cm/s TR Peak Gradient 20.6 mmHg TV Peak E Velocity 96.0 cm/s Right Atrial Pressure 3.0 mmHg Pulmonary Artery Systolic Pressu 23.6 mmHg RV Acceleration Time 0.1 s FINDINGS Left Ventricle Left ventricle is normal in size. LV systolic function is normal with EF of 55 to 60%. No regional wall motion abnormalities are seen. Right Ventricle Normal in size and function Right Atrium Normal in size Left Atrium Normal in size Mitral Valve Structurally normal mitral valve. Trace mitral regurgitation. Aortic Valve Structurally normal aortic valve. No significant stenosis or regurgitation. Tricuspid Valve Mild tricuspid regurgitation. Pulmonary artery systolic pressure is normal. Pulmonic Valve Not well-visualized Pericardium Normal Aorta Normal in size. IVC Appears to be normal CONCLUSIONS LV systolic function is normal with EF of 55 to 60%. Trace mitral regurgitation Mild tricuspid regurgitation No comparison studies are available Yair Gutierrez MD (Electronically Signed) Final Date: 02 September 2023 13:17 S
== END 2023-08-31 09:00 | disposition home or self-care (01) ==
LOC: RAD 09:00
PROVIDERS: PCP Nurse Practitioner Family; Visit Provider Internal Medicine
DX: I08.1 Rheumatic disorders of both mitral and tricuspid valves (principal); R07.9 Chest pain, unspecified; R06.02 Shortness of breath
CPT/HCPCS: 93306

== ENCOUNTER 2025-04-05 12:05 | Outpatient (CLI) | payer BC, MEDICAID, SELFPAY ==
[2025-04-05 12:05] VITALS: BMI 35.0
[2025-04-05 12:21] VITALS: BP 122/92; PULSE 94
[2025-04-05 12:41] VITALS: BP 129/84; PULSE 96
[2025-04-05 13:07] VITALS: BP 134/91; PULSE 86
[2025-04-05 13:21] VITALS: BP 123/81; PULSE 95
[2025-04-05 15:06] LABS: Glucose Urine UA Negative (Normal); Nitrate Urine Negative (Negative); Specific Gravity, Urine 1.006 (1.005-1.030)
[2025-04-05 16:31] LABS: Neisseria Gonorrhea NOT DETECTED (Negative)
== END 2025-04-05 14:10 | disposition home or self-care (01) ==
LOC: OPOB 12:07 → OBGYN 12:08
PROVIDERS: Visit Provider Family Medicine
DX: O13.9 Gestational [pregnancy-induced] hypertension without significant proteinuria, unspecified trimester (principal); Z3A.00 Weeks of gestation of pregnancy not specified; R25.2 Cramp and spasm; R42 Dizziness and giddiness
CPT/HCPCS: 81001; 87491; 87591; 99211